=== PATIENT | male | born 1945 | race Caucasian/White ===

== ENCOUNTER → 2018-04-19 | Outpatient (CLI) | payer MEDICARE, OTHER ==
[~2018-04-19] MED LIST: ASPIR 8181 MG PO; ENALAPRIL MALEA20 MG PO; HYDROCHLOROTH12.5 M1 PO; NITROGLYCERIN0.4 MG SUBLING; PAXIL10 MG PO; ZYRTEC10 MG PO
== END ==
LOC: M.RAD 15:33
DX: J01.41 Acute recurrent pansinusitis (principal)

== ENCOUNTER → 2018-05-07 | Outpatient (CLI) | payer MEDICARE, OTHER | LOC: M.MRI 04-22 13:15 | DX: G31.9 Degenerative disease of nervous system, unspecified (principal); J01.41 Acute recurrent pansinusitis; F32.1 Major depressive disorder, single episode, moderate; G89.29 Other chronic pain ==

== ENCOUNTER 2019-05-06 09:14 | Inpatient (IN) | payer MEDICARE, OTHER ==
[~2019-05-06] VITALS: Ht 167.6 cm; Wt 81.6 kg
--- NOTE | ~2019-05-06 | CON ---
[facility] [address] [place] [address] CONSULTATION Name: SHAILESH PORTILLO Room: [address] IN M.R.#: [id number] Admission: 05/06/19 Attend Phys: Cornell Hicks MD Discharge: Date of : 47 Report #: [id number] THIS REPORT FOR: //name// cc: Eugene Gonzalez MD, David L. MD ~ THIS REPORT FOR: //name// CC: Eugene Hicks DATE OF SERVICE: 05/08/2019 REQUESTING PHYSICIAN: Cornell Hicks M.D. REASON FOR CONSULTATION: Anemia. HISTORY OF PRESENT ILLNESS: The patient is a 73-year-old man who has a history of anemia. He was told in 2019 that he had iron deficiency anemia. He had GI workup with EGD and colonoscopy, which was unremarkable. The patient was started on oral iron, but discontinued because of constipation. He was seen by PCP recently and was found to have profound anemia with hemoglobin of 8.5. Anemia was microcytic. The patient was sent to the hospital. He was given 2 units of packed red blood cells and responded well. His hemoglobin increased to 7.2. He had a workup done, which showed low folic acid and ferritin of 882. Dr. Medley was consulted for GI consultation. Dr. Medley suggested IV iron. The patient is receiving Venofer, second day of Venofer today. He is doing well. He does not have complaints of weight loss. He says he has poor appetite. He has not been eating "much." He has not had any melena or hematochezia. SOCIAL HISTORY: Lives alone, heavy smoker. He has more than 26-ebna-prnw history of smoking, "he is not planning to do is discontinue." PAST MEDICAL HISTORY: Significant for COPD, hypertension, and anemia. FAMILY HISTORY: Noncontributory. REVIEW OF SYSTEMS: CONSTITUTIONAL: Negative for weight loss. Denies headaches. Positive for productive cough," smoker's cough. GASTROINTESTINAL: No nausea, vomiting, or diarrhea. GENITOURINARY: No dysuria. NEUROLOGIC: Negative. PSYCHIATRIC: History of anxiety. SKIN: No rash. HEMATOLOGICAL: [place] [address] CONSULTATION Name: BANDARSHAILESH MAYITO Room: [address]#: [id number] Admission: 05/06/19 Attend Phys: Cornell Hicks MD Discharge: Date of : 47 Report #: [id number] PHYSICAL EXAMINATION: GENERAL: Reveals chronically ____ appearing man, not in acute distress, coughing heavily, but not dyspneic. VITAL SIGNS: Blood pressure is 115/97, heart rate is 87, temperature is 97.6, and respirations are 20. HEENT: Does not reveal thrush. HEART: Normal S1, S2. LUNGS: Clear, some wheezing. ABDOMEN: Soft. No organomegaly. EXTREMITIES: No edema. SKIN: Does not reveal any rash. There is no peripheral lymphadenopathy. LABORATORY DATA: White count 5.9, hemoglobin 7.2, platelets 371, and MCV 78. On admission, hemoglobin 5.8, platelets 454, MCV 75, and ferritin 82. Folic acid 2.3. B12 489. LFTs normal. Sodium 132, total protein 6.3, albumin 3.0, total bilirubin 0.5. ASSESSMENT AND PLAN: 1. Microcytic anemia. This is suggestive of iron deficiency. He probably has ____ folate deficiency as well. He did have GI workup. I will defer further workup to Dr. Medley. I agree with management, however, with IV iron since he cannot tolerate oral iron. Since he started Venofer in the hospital, consider to give one more dose and discharge home. He needs to followup with Dr. Aguirre for outpatient treatment and management of iron deficiency. He may require iron infusion every 6 months or once a year. 2. Hyponatremia; ?syndrome of inappropriate antidiuretic hormone. He had full workup for oncological reasons for syndrome of inappropriate antidiuretic hormone. His brain MRI is negative. Chest CT does not show any mass. Thank you very much for allowing me to participate in care of this patient. By: [id number] Gaitan MD /nt
--- NOTE | ~2019-05-06 | CON ---
[address] [address] CONSULTATION Name: SHAILESH PORTILLO Room: [address] ADM IN .R.#: [id number] Admission: 05/06/19 Attend Phys: Cornell Hicks MD Discharge: Date of : 47 Report #: [id number] THIS REPORT FOR: //name// cc: Eugene Gonzalez MD, David L. MD ~ THIS REPORT FOR: //name// CC: Eugene Hicks DICTATED BY: Denae Gonzalez [facility] DATE OF SERVICE: 05/07/2019 Please note at the time of this dictation, the patient was seen and physically examined by myself. REASON FOR CONSULTATION: Anemia. HISTORY OF PRESENT ILLNESS: This is a 73-year-old male who presented after the patient was instructed by his PCP to come to the hospital as a direct admit for a critically low hemoglobin. The patient had seen his PCP on the . He was having a lot of increased fatigue, some shortness of breath with exertion and some lethargy. He said he just had no energy and he was noted to have a hemoglobin of 5.4. When he arrived at the hospital, his hemoglobin was 5.8 and he has received 2 units of blood since then and his hemoglobin is 7.4. He states he is feeling significantly better and he is wanting to know when he can go home. The patient denies any nausea, vomiting or abdominal pain. He has not had any black stools or any bright red bloody stools. He does have ongoing issues with constipation, which maybe 3 or 4 days at a time before he will go and this has been ongoing. He does not take anything on a regular basis to help with his bowels. The patient does state that in 05/2018, he was referred to consultants in Gastroenterology for anemia and he underwent an upper scope and lower scope and was told everything was normal. He did not have a small bowel capsule. He did state at that time, he was having some issues with dysphagia and he had a stretching as he could of his esophagus, which he has had no further problems with at this time. The patient states his last bowel movement was 3-4 days ago and he is feeling somewhat constipated. ALLERGIES: No known drug allergies. MEDICATIONS: From home include his enalapril, Zyrtec, Paxil. PAST MEDICAL HISTORY: Hypertension, anxiety, iron deficiency anemia, [place] [address] CONSULTATION Name: SHAILESH PORTILLO Room: [address]#: [id number] Admission: 05/06/19 Attend Phys: Cornell Hicks MD Discharge: Date of : 47 Report #: [id number] PAST SURGICAL HISTORY: Negative. FAMILY HISTORY: Negative for any GI or female cancers. SOCIAL HISTORY: He smokes 1-1/2 to 2 packs per day and he does have 3-4 alcoholic beverages per day. REVIEW OF SYSTEMS: Twelve-point review of systems is essentially negative except what is mentioned in the HPI. PHYSICAL EXAMINATION: VITAL SIGNS: Temperature 36.3, pulse 84, respirations 20, blood pressure 123/45. HEART: Regular rate and rhythm. LUNGS: Clear. ABDOMEN: Soft, positive bowel sounds in all 4 quadrants with no masses or tenderness noted. LABORATORY DATA: Hemoglobin is 7.4, white count 7.1, platelets 398, MCV is low at 77.3. His BUN prior to admission was 27, he has 23 today. GFR is 73. PT 10.7, INR is 1. Ferritin was 82, B12 was 489 and his LFTs were completely normal. CT of the abdomen and pelvis showed diverticulosis, right inguinal hernia and some cholelithiasis. IMPRESSION: 1. Acute anemia, history of iron deficiency anemia in 05/2018, EGD colon was negative per the patient. 2. Constipation. 3. Fatigue. 4. Substance abuse, tobacco and alcohol on a regular basis. PLAN: 1. We will obtain records from [facility]. 2. The patient would benefit from an iron infusion due to his chronic issues with constipation that are made worse by the iron. 3. If EGD colon done a year ago are completely negative, the patient will likely need a small bowel capsule as an outpatient and discussed all of this with him. 4. We will add MiraLax b.i.d. to help his bowels move. 5. Labs in the a.m. to ensure that his hemoglobin remains stable. 6. Further recommendations to be made once Dr. Medley sees the patient later today. [address] [place] [address] CONSULTATION Name: SHAILESH PORTILLO Room: [address] IN ..#: [id number] Admission: 05/06/19 Attend Phys: Cornell Hicks MD Discharge: Date of : 47 Report #: [id number] Thank you for allowing us to participate in this patient's care. Please do not hesitate to call with any questions in regard to this consult. By: [id number] Medley MD /nt
[2019-05-06 09:21] VITALS: BP 134/51
[2019-05-06 09:37] LABS: ABSOLUTE BASOPHILS 0.1 thou/uL (0.0-0.2); ABSOLUTE EOSINOPHILS 0.3 thou/uL (0.0-0.7); ABSOLUTE LYMPHOCYTES 1.8 thou/uL (0.8-5.3); ABSOLUTE MONOCYTES 1.1 thou/uL (0.0-1.2); ABSOLUTE NEUTROPHILS 2.4 thou/uL (1.6-8.1); BASOPHILS 1.7 %; EOSINOPHILS 5.7 %; LYMPHOCYTES 31.3 %; MCH 22.7 pg (26.0-34.0); MCHC 30.2 g/dL (28.0-37.0); MCV 75.1 fL (80.0-100.0); MONOCYTES 19.3 %; MPV 7.2 fl. (7.2-11.1); NUCLEATED RBCS 0 /100WBC; PLATELET COUNT* 454 thou/uL (150-400); RBC 2.55 mil/uL (4.50-6.00); RDW-CV 22.2 % (10.5-14.5); WBC 5.7 thou/uL (4.0-11.0)
[2019-05-06 09:38] LABS: HEMATOCRIT 19.2 % (42.0-52.0); HEMOGLOBIN 5.8 gm/dL (14.0-18.0)
[2019-05-06 09:47] LABS: APTT 26.5 Seconds (25.0-31.3); PROTIME 10.7 Seconds (9.20-11.50)
[2019-05-06 09:48] LABS: CREATININE 0.8 mg/dL (0.6-1.3); POTASSIUM 4.5 mmol/L (3.5-5.1)
[2019-05-06 09:59] LABS: ALBUMIN 3.1 g/dL (3.4-5.0); TOTAL BILIRUBIN 0.3 mg/dL (<0.1-1.0); TOTAL PROTEIN 6.8 g/dL (6.4-8.2)
[2019-05-06 10:14] LABS: HYPOCHROMASIA 2+; PLATELET ESTIMATE ADEQUATE
[2019-05-06 10:15] LABS: ANISOCYTOSIS 1+
[2019-05-06 11:54] LABS: URINE BILIRUBIN NEGATIVE (Negative); URINE BLOOD NEGATIVE (Negative); URINE CLARITY CLEAR; URINE COLOR YELLOW; URINE GLUCOSE-RANDOM NEGATIVE (Negative); URINE KETONES NEGATIVE (Negative); URINE LEUKOCYTES-REFLEX NEGATIVE (Negative); URINE NITRITE-REFLEX NEGATIVE (Negative); URINE PROTEIN NEGATIVE (Negative); URINE UROBILINOGEN 0.2 E.U./dl (0.2-1.0)
[2019-05-06 15:10] LABS: HEMATOCRIT 21.2 % (42.0-52.0)
[2019-05-06 15:13] LABS: HEMOGLOBIN 6.7 gm/dL (14.0-18.0)
[2019-05-06 16:53] VITALS: BP 118/42
[2019-05-06 21:11] VITALS: BP 122/47; BP 122/55; BP 130/66; BP 133/47; BP 134/63
[2019-05-07 00:25] VITALS: BP 122/47
[2019-05-07 04:34] VITALS: BP 119/46
[2019-05-07 06:25] LABS: HEMATOCRIT 23.4 % (42.0-52.0); HEMOGLOBIN 7.5 gm/dL (14.0-18.0)
[2019-05-07 06:26] LABS: HEMATOCRIT 22.9 % (42.0-52.0); HEMOGLOBIN 7.4 gm/dL (14.0-18.0); MCH 25.1 pg (26.0-34.0); MCHC 32.5 g/dL (28.0-37.0); MCV 77.3 fL (80.0-100.0); MPV 7.5 fl. (7.2-11.1); RBC 2.96 mil/uL (4.50-6.00); RDW-CV 21.8 % (10.5-14.5); WBC 7.1 thou/uL (4.0-11.0)
[2019-05-07 06:36] LABS: CALCIUM 8.6 mg/dL (8.5-10.1); MAGNESIUM 1.5 mg/dL (1.8-2.4); POTASSIUM 4.3 mmol/L (3.5-5.1)
[2019-05-07 08:06] VITALS: BP 123/45
--- NOTE | 2019-05-07 10:40 | EKG ---
[place] [address] ELECTROCARDIOGRAM REPORT Name: SHAILESH PORTILLO Room: [address] ADM IN .R.#: [id number] Admission: 05/06/19 Attend Phys: Cornell Hicks, Discharge: Date of : 47 Date of Service: 05/06/19 1002 Report #: [id number] THIS REPORT FOR: //name// [facility] ED Test Date: 2019-05-06 Test Time: 10:02:52 Pat Name: SHAILESH PORTILLO Department: Room: [facility] Gender: M [employer]: [place] : [id number] Requested By: Avila Hopper Order Number: [id number] MD: Eugene Monroy Measurements Intervals [place] Rate: 83 P: 24 UT: 211 QRS: 29 QRSD: 83 T: 12 QT: 378 QTc: 445 Interpretive Statements Sinus rhythm Multiform supraventricular premature complexes Compared to ECG 09/06/2016 08:37:16 supraventricular premature complex(es) now present Electronically Signed On 05-07-2019 10:39:16 [employer] by Eugene Monroy [email or web address] <ELECTRONICALLY SIGNED> By: Eugene Monroy MD, FACC 05/07/19 1039 1002 1002 Eugene Monroy MD, [facility] /EPI
[2019-05-07 12:28] VITALS: BP 124/55
[2019-05-07 20:10] VITALS: BP 125/61
[2019-05-08] VITALS (8 sets, daily range): BP systolic 86–125; BP diastolic 41–97
[2019-05-08 05:02] LABS: ABSOLUTE EOSINOPHILS 0.1 thou/uL (0.0-0.7); ABSOLUTE LYMPHOCYTES 1.6 thou/uL (0.8-5.3); ABSOLUTE MONOCYTES 1.1 thou/uL (0.0-1.2); ABSOLUTE NEUTROPHILS 3.1 thou/uL (1.6-8.1); BASOPHILS 0.5 %; EOSINOPHILS 1.1 %; HEMATOCRIT 22.6 % (42.0-52.0); HEMOGLOBIN 7.2 gm/dL (14.0-18.0); LYMPHOCYTES 27.3 %; MCH 24.9 pg (26.0-34.0); MCHC 31.8 g/dL (28.0-37.0); MCV 78.1 fL (80.0-100.0); MONOCYTES 19.3 %; MPV 7.8 fl. (7.2-11.1); NUCLEATED RBCS 0 /100WBC; PLATELET COUNT* 371 thou/uL (150-400); POLYS 51.8 %; RDW-CV 21.5 % (10.5-14.5); WBC 5.9 thou/uL (4.0-11.0)
[2019-05-08 05:27] LABS: CALCIUM 8.1 mg/dL (8.5-10.1); CREATININE 0.8 mg/dL (0.6-1.3); POTASSIUM 4.2 mmol/L (3.5-5.1); TOTAL BILIRUBIN 0.5 mg/dL (<0.1-1.0); TOTAL PROTEIN 6.3 g/dL (6.4-8.2)
[2019-05-08 07:02] LABS: ANISOCYTOSIS 1+; PLATELET ESTIMATE ADEQUATE
[2019-05-08 10:12] LABS: HEMOGLOBIN 5.7 g/dL (13.0-17.7)
[2019-05-09 08:00] VITALS: BP 109/52
[2019-05-09 08:33] LABS: ABSOLUTE BASOPHILS 0.1 thou/uL (0.0-0.2); ABSOLUTE EOSINOPHILS 0.3 thou/uL (0.0-0.7); ABSOLUTE LYMPHOCYTES 1.4 thou/uL (0.8-5.3); ABSOLUTE MONOCYTES 0.9 thou/uL (0.0-1.2); ABSOLUTE NEUTROPHILS 2.6 thou/uL (1.6-8.1); BASOPHILS 1.9 %; EOSINOPHILS 4.7 %; HEMATOCRIT 23.7 % (42.0-52.0); HEMOGLOBIN 7.6 gm/dL (14.0-18.0); LYMPHOCYTES 26.9 %; MCH 25.2 pg (26.0-34.0); MCV 78.7 fL (80.0-100.0); MONOCYTES 17.5 %; MPV 7.6 fl. (7.2-11.1); NUCLEATED RBCS 0 /100WBC; PLATELET COUNT* 371 thou/uL (150-400); RBC 3.01 mil/uL (4.50-6.00); RDW-CV 22.2 % (10.5-14.5); WBC 5.4 thou/uL (4.0-11.0)
[2019-05-09 09:02] LABS: CALCIUM 7.7 mg/dL (8.5-10.1); CREATININE 0.8 mg/dL (0.6-1.3); POTASSIUM 4.6 mmol/L (3.5-5.1)
[2019-05-09] MEDS ORDERED: FOLIC ACID1 MG PO (11:05)
[2019-05-09] MEDS ORDERED: VITAMIN B-1100 M1 PO (11:05)
[2019-05-09] MEDS ORDERED: SUPER THERAVIT1 EACH PO (11:05)
[2019-05-09 12:53] VITALS: BP 109/52
[2019-05-09 14:15] VITALS: BP 109/52
== END 2019-05-09 14:20 | disposition home or self-care (01) | DRG 812 ==
LOC: M.ERS 09:14 → M.TBA-ER 10:45 → M.2W 10:45
PROVIDERS: Family Medicine; Internal Medicine; Nurse Practitioner Adult Health; ADMIT Internal Medicine
PROC: 30233N1 Transfusion of Nonautologous Red Blood Cells into Peripheral Vein, Percutaneous Approach (ICD-10-PCS; principal; 2019-05-06)
DX: D50.9 Iron deficiency anemia, unspecified (principal); E44.0 Moderate protein-calorie malnutrition; E22.2 Syndrome of inappropriate secretion of antidiuretic hormone; I10 Essential (primary) hypertension; F41.9 Anxiety disorder, unspecified; F17.210 Nicotine dependence, cigarettes, uncomplicated; F10.10 Alcohol abuse, uncomplicated; K59.00 Constipation, unspecified; Z60.2 Problems related to living alone; J44.9 Chronic obstructive pulmonary disease, unspecified; R91.1 Solitary pulmonary nodule; Z68.29 Body mass index [BMI] 29.0-29.9, adult; Z79.899 Other long term (current) drug therapy; Z72.89 Other problems related to lifestyle; Z79.51 Long term (current) use of inhaled steroids

== ENCOUNTER → 2021-02-24 | Outpatient (CLI) | payer MEDICARE, OTHER ==
[~2021-02-24] MED LIST changes: +FOLIC ACID1 MG PO; +SUPER THERAVIT1 EACH PO; +VITAMIN B-1100 M1 PO
== END ==
LOC: M.CT 13:00
PROVIDERS: ATTEND Internal Medicine
DX: Z12.2 Encounter for screening for malignant neoplasm of respiratory organs (principal); I25.10 Atherosclerotic heart disease of native coronary artery without angina pectoris; I70.0 Atherosclerosis of aorta; J43.8 Other emphysema; M47.815 Spondylosis without myelopathy or radiculopathy, thoracolumbar region; Z87.891 Personal history of nicotine dependence